=== PATIENT | male | born 1975 | race African-American/Black ===

== ENCOUNTER 2022-05-28 17:58 | Emergency (ER) | payer OTHER ==
[2022-05-28 18:07] VITALS: BP 136/96
[2022-05-28 18:15] VITALS: BP 140/88
[2022-05-28] MEDS ORDERED: LISINOPRIL10 MG PO (18:25)
[2022-05-28] MEDS ORDERED: NORVASC2.5 M1 PO (18:25)
[2022-05-28 19:08] VITALS: BP 113/73
[2022-05-28 19:30] VITALS: BP 113/78
[2022-05-28] MEDS ORDERED: DIPHENHYDRAM50 M2 PO (19:38)
[2022-05-28] MEDS ORDERED: MEDDOSEPAK PO (19:38)
[2022-05-28] MEDS ORDERED: PEPCID20 MG PO (19:38)
[2022-05-28 20:00] VITALS: BP 111/78
== END 2022-05-28 20:23 | disposition home or self-care (01) | DRG 916 ==
LOC: ED 17:58
DX: T78.3XXA Angioneurotic edema, initial encounter (principal); S00.561A Insect bite (nonvenomous) of lip, initial encounter; W57.XXXA Bitten or stung by nonvenomous insect and other nonvenomous arthropods, initial encounter; I10 Essential (primary) hypertension